=== PATIENT | female | born 1975 | race Caucasian/White ===

== ENCOUNTER 2020-07-25 20:29 | Emergency (ER) | payer MEDICAID, MEDICARE ==
[~2020-07-25] VITALS: Ht 165.1 cm; Wt 110.0 kg
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
--- NOTE | 2020-07-25 20:56 | NUR ---
ERP AT BEDSIDE
[2020-07-25 21:48] LABS: BASOPHILS % (AUTO) 1 % (0-1); EOSINOPHILS % (AUTO) 1 % (1-7); LYMPHOCYTES % (AUTO) 35 % (22-44); MEAN CORPUSCULAR HEMOGLOBIN 27.5 pg (27.0-34.8); MEAN PLATELET VOLUME 8.7 fL (7.4-10.4); MONOCYTES % (AUTO) 8 % (2-9); NEUTROPHILS % (AUTO) 55 % (42-75); PH, VENOUS 7.365 pH (7.320-7.420); PLATELET COUNT 351 x10^3/uL (130-400); RED BLOOD COUNT 4.64 x10^6/uL (3.82-5.3); RED CELL DISTRIBUTION WIDTH 18.7 % (9.6-15.2)
[2020-07-25 21:50] LABS: MD NO
[2020-07-25] MEDS ORDERED: ACETAMINOPHEN 325 MG TABLET ONE (21:50)
--- NOTE | 2020-07-25 21:57 | NUR ---
PT REQUESTING "SOMETHING FOR MY HEADACHE", ERP AWARE. PT MEDICATED PER EMAR. PT PROVIDED WATER. NO ADDITIONAL NEEDS AT THIS TIME. CALL LIGHT AND BELONGINGS WITHIN REACH.
[2020-07-25 21:59] LABS: ALBUMIN 3.4 g/dL (3.4-5.0); ANION GAP 11 mmol/L (5-15); CHLORIDE 101 mmol/L (98-107)
[2020-07-25] MEDS ORDERED: ACETAMINOPHEN 325 MG TABLET PO ONE (22:00)
--- NOTE | 2020-07-25 22:08 | NUR ---
PT AMBULATORY WITH STEADY GAIT WITH THIS RN TO BATHROOM. PT DENIES ANY ADDITIONAL NEEDS AT THIS TIME. CALL LIGHT AND BELONGINGS WITHIN REACH.
[2020-07-25 22:19] LABS: MICROSCOPIC INDICATED
--- NOTE | 2020-07-25 23:22 | NUR ---
PT DESAT TO 85% WHILE SLEEPING. PLACED ON 3L NC W/ DESIRED EFFECT.
[2020-07-25 23:45] LABS: ACETONE, SERUM Trace (Negative)
--- NOTE | 2020-07-26 00:01 | NUR ---
PT SUPINE ON VINNIE STRATTON VSS. PT DENIES ANY NEEDS AT THIS TIME. CALL LIGHT AND PERSONAL BELONGINGS WITHIN REACH.
--- NOTE | 2020-07-26 02:02 | NUR ---
PT AMBULATORY WITH STEADY GAIT WITH THIS RN TO BATHROOM. PT PROVIDED WATER AND ICE PER REQUEST. NO ADDITIONAL NEEDS AT THIS TIME. CALL LIGHT AND BELONGINGS WITHIN REACH.
--- NOTE | 2020-07-26 05:06 | NUR ---
PT UPRIGHT ON VINNIE STRATTON VSS. PT PLACING CALL TO FAMILY TO OBTAIN RIDE HOME FROM ED. PT DENIES ANY ADDITIONAL NEEDS AT THIS TIME. CALL LIGHT AND BELONGINGS WITHIN REACH. AWAITING D/C
--- NOTE | 2020-07-26 06:02 | NUR ---
PT REPORTS "FEELING MUCH BETTER, I AM READY TO GO HOME AND SLEEP IN MY OWN BED". PT DENIES ANY ADDITIONAL NEEDS AT THIS TIME. CALL LIGHT AND BELONGINGS WITHIN REACH. AWAITING RIDE HOME FOR D/C
--- NOTE | 2020-07-26 06:30 | NUR ---
Patient given discharge instructions and they have confirmed that they understand the instructions. Patient ambulatory with steady gait, family in department to give pt ride home.
[2020-07-26 06:31] VITALS: BP 104/62
[2020-07-26] MEDS ORDERED: NEOSPORIN OINT. PKT 1 PACKET ONE (19:17)
== END 2020-07-26 06:45 | disposition home or self-care (01) ==
LOC: ED 07-26 01:02 → UNDOADMIN 07-26 01:04 → EDIP 07-26 01:04
DX: E11.65 Type 2 diabetes mellitus with hyperglycemia (principal); I10 Essential (primary) hypertension; K21.9 Gastro-esophageal reflux disease without esophagitis; G43.909 Migraine, unspecified, not intractable, without status migrainosus; F17.200 Nicotine dependence, unspecified, uncomplicated; Z90.49 Acquired absence of other specified parts of digestive tract
CPT/HCPCS: 36415; 80048; 81001; 82010; 82040; 82803; 82962; 83605; 85025; 87086; 99285